=== PATIENT | female | born 1960 | race Caucasian/White ===

== ENCOUNTER → 2017-07-13 11:32 | Outpatient (CLI) | payer BC ==
[~2017-07-13] VITALS: Ht 172.7 cm; Wt 62.7 kg
--- NOTE | ~2017-07-13 | HEMODYNAMI ---
PATIENT:MARCE HUFFMAN MEDICAL RECORD: [id number] : 64 LOCATION:[facility] ADMISSION DATE: 07/13/17 Generatedon:07/13/201714:52 Patient name: MARCE HUFFMAN Patient #: [id number] SSN: : 1960 Date of study: 07/13/2017 Page: Of Hemodynamic Procedure Report Patient Data Patient Demographics Procedure consent was obtained First Name: MARCE Gender: Female Last Name: ARMIDA : 1960 [facility] Initial: HARLEEN Age: 57 year(s) Patient #: [id number] Race: Unknown Additional ID: [id number] Contact details Address: [address] [place] [address] State: [place] City: [facility] [place] Zip code: [address] Admission Admission Data Admission Date: 07/13/2017 Admission Time: 11:32 Procedure Procedure Types Cath Procedure Diagnostic Procedure LHC LHC w/Coronaries Miscellaneous Procedures Moderate Sedation up to 15 minutes Procedure Description Procedure Date Procedure Date: 07/13/2017 Procedure Start Time: 14:37 Procedure End Time: 14:52 Procedure Staff Name Function Arias Kennedy MD Performing Physician Neftali Rodrigues RT Monitor Felisa Garcia RT Scrub Humberto Lozano RN Nurse Procedure Data Cath Procedure Fluoroscopy Diagnostic fluoroscopy Total fluoroscopy Time: 1.1 time: 1.1 min min Diagnostic fluoroscopy Total fluoroscopy dose: 134 dose: 134 mGy mGy Contrast Material Contrast Material Type Amount (ml) Isovue 300 46 Entry Location Entry Primary Successful Side Size Upsize Upsize Entry Closure Robison ccessful Closure Location (Fr) 1 (Fr) 2 (Fr) Remarks Device Remarks Radial Right 6 Fr Mechanical artery Short Compression Estimated blood loss: 10 ml Diagnostic catheters Device Type Used For End Catheter Placement DIAGNOSTIC [place] 110cm 5 Procedure Fr catheter ([id number]) Procedure Complications No complications Procedure Medications Medication Administration Route Dosage 0.9% NaCl I.V. 100 ml/hr Oxygen NC 2 l/min Heparin Flush Bag added to field 2 bags (1000units/500ml NS) Lidocaine 2% added to field 20 Radial Cocktail added to field 1 syringe (Verapomil 2mg/Nitro 400mcg/Heparin 1500units) Versed I.V. 2 mg Fentanyl I.V. 100 mcg Radial Cocktail I.A. 1 syringe (Verapomil 2mg/Nitro 400mcg/Heparin 1500units) Hemodynamics Rest Heart Rate: 71 (bpm) Pressure Samples Time Site Value (mmHg) Purpose Heart Use Rate(bpm) 14:39 LV 134/-14,10 Snapshot 75 14:40 AO 105/63(81) Snapshot 88 Gradients Valve Time Site Site Mean SEP/DFP Peak To Heart Use 1 2 (mmHg) (sec/min) Peak Rate (mmHg) (bpm) Aortic 14:40 LV AO 73 Snapshots Pre Cath Intra NCS Post Cath Vital Signs Time Heart Resp SPO2 etCO2 NIBP Rhythm Pain Sedation Rate (ipm) (%) (mmHg) (mmHg) Status Level (bpm) 14:29:38 72 14 100 39.3 126/55(86) NSR 0 (11) 10(A) , No pain 14:34:14 70 16 99 40.8 111/57(80) NSR 0 (11) 10(A) , No pain 14:38:47 89 15 100 41.5 117/62(86) NSR 0 (11) 10(A) , No pain 14:43:24 88 16 97 43.1 108/54(77) NSR 0 (11) 10(A) , No pain 14:47:56 98 43.8 122/55(87) NSR 0 (11) 10(A) , No pain Medications Time Medication Route Dose Verified Delivered Reason Notes Effectiveness by by 14:27:08 0.9% NaCl I.V. 100 Humberto Humberto Per ml/hr Blake Lozano physician RN RN 14:27:36 Oxygen NC 2 l/min Humberto Humberto Per Blake Lozano physician RN RN 14:28:02 Heparin Flush added 2 bags Humberto Humberto used for Bag to Lorigan Lorigan procedure (1000units/500ml field RN RN NS) 14:28:45 Lidocaine 2% added 20ml Humberto Humberto for local to vial Lorigan Lorigan anesthetic field RN RN 14:29:02 Radial Cocktail added 1 Humberto Humberto for (Verapomil to syringe Lorigan Lorigan vasodilation 2mg/Nitro field RN RN 400mcg/Heparin 1500units) 14:39:08 Versed I.V. 2 mg Humbertooneyda Paul for sedation Blake Lozano RN RN 14:39:16 Fentanyl I.V. 100 mcg Humberto Paul for sedation Blake Lozano RN RN 14:39:39 Radial Cocktail I.A. 1 Humberto Bianchi for (Verapomil syringe Blake Kennedy vasodilation 2mg/Nitro ALEXANDRA REDDY 400mcg/Heparin 1500units) Procedure Log Time Note 14:00:54 Neftali Rodrigues RT(R) sent for patient. Start room use. 14:07:55 Time tracking: Regular hours 14:07:59 Plan of Care:Hemodynamics will remain stable., Cardiac rhythm will remain stable., Comfort level will be maintained., Respiratory function will remain adequate., Patient/ family verbilizes understanding of procedure., Procedure tolerated without complication., Recovers from procedure without complications.. 14:10:43 Patient received from Pre/Post Procedure Room to [facility] 1 Alert and oriented. Tansferred to table in Supine position. 14:10:44 Warm blankets applied, and rufus hugger turned on for patient comfort. 14:10:44 Correct patient and procedure confirmed by team. 14:10:45 Signed procedure consent form obtained from patient. 14:10:46 ECG and BP/O2 sat monitors applied to patient. 14:10:47 Full Disclosure recording started 14:27:08 0.9% NaCl 100 ml/hr I.V. was administered by Humberto Lozano RN; Per physician; 14:27:36 Oxygen 2 l/min NC was administered by Humberto Lozano RN; Per physician; 14:28:02 Heparin Flush Bag (1000units/500ml NS) 2 bags added to field was administered by Humberto Lozano RN; used for procedure; 14:28:45 Lidocaine 2% 20ml vial added to field was administered by Humberto Lozano RN; for local anesthetic; 14:28:48 Vital chart was started 14:29:02 Radial Cocktail (Verapomil 2mg/Nitro 400mcg/Heparin 1500units) 1 syringe added to field was administered by Humberto Lozano RN; for vasodilation; 14:29:02 Baseline sample Acquired. 14:29:06 Rhythm: sinus rhythm 14:29:29 H&P Date Dictated: 07/05/2017 Within 30 days and on chart.. 14:29:30 Pre-procedure instructions explained to patient. 14:29:31 Pre-op teaching completed and patient verbalized understanding. 14:29:35 Family in patients room. 14:29:37 Patient NPO since Midnight. 14:29:39 Is the patient allergic to Iodine/contrast media? No. 14:29:44 Is patient on blood thinner?No 14:29:46 Patient diabetic? No. 14:29:49 Patient not . Patient is over age 57. 14:32:19 Previous problem with sedation/anesthesia? No ? 14:32:20 Snore? Yes 14:32:22 Sleep apnea? No 14:32:22 Deviated septum? No 14:32:24 Opens mouth fully? Yes 14:32:25 Sticks out tongue? Yes 14:32:28 Airway obstruction? No ? 14:32:30 Dentures? No ? 14:32:33 Pre procedure: right dorsailis pedis pulse 1+ Palpable, but thready & weak; easily obliterated 14:32:36 Modified Eleno's test Ulnar < 7 seconds 14:32:43 Patient pain scale 0/10 ?. 14:32:49 IV patent on arrival in left forearm with 0.9% NaCl at [facility]. 14:32:51 Lab results completed and on chart. 14:32:54 Right Radial & Right Groin area was prepped with chlora-prep and draped in sterile fashion 14:32:55 Alarms reviewed by R. N. 14:32:56 Sharps counted by scrub and verified by R.N. 14:33:14 Use device set Radial Dx 14:33:17 Tegaderm 4 x 4 (1626W) opened to sterile field. 14:33:18 ACIST Hand Control (50030) opened to sterile field. 14:33:18 ACIST Manifold (62534) opened to sterile field. 14:33:20 ACIST Syringe (31775) opened to sterile field. 14:33:20 Medline Cath Pack ([id number]) opened to sterile field. 14:33:21 Bag Decanter (2002S) opened to sterile field. 14:33:21 SHEATH 6FR Slender ([id number]) opened to sterile field. 14:33:21 DIAGNOSTIC WIRE .035 260cm J wire (060641) opened to sterile field. 14:33:22 MBrace Wrist Support ([id number]) opened to sterile field. 14:36:15 --------ALL STOP TIME OUT------ 14:36:16 Final Timeout: patient, procedure, and site verified with staff and physician. All members of the team are in agreement. 14:36:18 Right Radial & Right Groin site verified by team. 14:36:20 Physical assessment completed. ASA score P 2 - A patient with mild systemic disease as per Arias Kennedy MD. 14:36:23 Sedation plan: IV Moderate Sedation Medication:Versed, Fentanyl 14:36:46 Zero performed for pressure channel P1 14:36:49 Zero performed for pressure channel P1 14:37:03 Procedure started. 14:37:07 Local anesthetic to right radial artery with Lidocaine 2% by Arias Kennedy MD.INITIAL ACCESS ONLY 14:38:08 A 6 Fr Short sheath was inserted into the Right Radial artery 14:38:21 A DIAGNOSTIC [place] 110cm 5 Fr catheter ([id number]) was advanced over the wire and used for Procedure. 14:39:08 Versed 2 mg I.V. was administered by Humberto Lozano RN; for sedation; 14:39:16 Fentanyl 100 mcg I.V. was administered by Humberto Lozano RN; for sedation; 14:39:39 Radial Cocktail (Verapomil 2mg/Nitro 400mcg/Heparin 1500units) 1 syringe I.A. was administered by Arias Kennedy MD; for vasodilation; 14:39:45 LV angiography performed. 14:39:46 LV gram done using PHILLIPS 14:39:54 EF : 55 % 14:39:59 LV hemodynamics recorded. 14:40:04 Injector settings: Ml/sec: 7, Volume: 15, 14:41:04 LCA angiography performed. 14:41:52 RCA angiography performed. 14:41:56 Catheter removed. 14:42:11 TR BAND Standard ([id number]) opened to sterile field. 14:42:22 Sheath removed intact; hemostasis achieved with Mechanical Compression to the Right Radial artery. 14:42:24 Procedure ended.(Physican Out) 14:51:03 Fluoroscopy time 01.10 minutes. 14:51:08 Fluoroscopy dose: 134 mGy 14:51:08 Flurop Dose total: 134 14:51:20 Contrast amount:Isovue 300 46ml. 14:51:22 Sharps counted by scrub and verified by R.N. 14:51:24 Insertion/operative site no bleeding no hematoma. 14:51:27 TR band inflated with 12cc of air. 14:51:29 Post Procedure Pulses reassessed and unchanged 14:51:34 Post-procedure physical assessment completed. ASA score P 2 - A patient with mild systemic disease as per Arias Kennedy MD. 14:51:36 Post procedure rhythm: unchanged. 14:51:38 Estimated blood loss: 10 ml 14:51:39 Post procedure instruction explained to patient.Patient verbalizes understanding. 14:51:40 Patient needs reinforcement of post procedure teaching. 14:51:41 Vital chart was stopped 14:51:44 Procedure Complication : No complications 14:51:54 Procedure and supply charges have been captured, reviewed, submitted and are correct. 14:52:09 See physician's report for complete and final results. 14:52:12 Report given to Pre/Post Procedure Room. 14:52:15 Patient transfered to Pre/Post Procedure Room with Stretcher. 14:52:17 Procedure ended. 14:52:17 Full Disclosure recording stopped 14:52:25 End room use (Document Last) Device Usage Item Name Manufacture Quantity Catalog Hospital Part Current Minima l Lot# / Number Charge Number Stock Stock Serial# Code Tegaderm 4 x 3M 1 1626W [id number] [id number] [id number] 5 4 (1626W) ACIST Hand Acist 1 18119 156785 716131 866079 5 Control Medical (11677) Systems Inc ACIST Acist 1 30208 665521 008611 118612 5 Manifold Medical (90583) Systems Inc ACIST Acist 1 82849 480658 798237 040841 20 Syringe Medical (14892) Systems Inc Medline Cath Cardinal 1 [id number] 068885 05862 360727 5 Pack Health ([id number]) Bag Decanter Microtek 1 2001S 936345 91921 750919 5 () Medical Inc. SHEATH 6FR Terumo 1 [id number] 737240 873429 429174 40 Slender ([id number]) DIAGNOSTIC St Pako 1 470523 146499 156575 360379 30 WIRE .035 260cm J wire (277060) MBrace Wrist Advanced 1 140-0250-00 569742 74119 234366 5 Support Vascular ([id number]) Dynamics DIAGNOSTIC Terumo 1 83-0920 082702 611933 795029 5 [place] 110cm 5 Fr catheter (136523) TR BAND Terumo 1 [id number] 960146 682300 794585 40 Standard ([id number]) Signature Audit Wheeler Stage Time Signature Unsigned Intra-Procedure 07/13/2017 Neftali Rodrigues 2:52:42 PM RT(R) Signatures Monitor : Neftali Rodrigues RT Signature : Date : Time : [address] [address]
[~2017-07-13 11:32] MED LIST: CALCI-CHEW1 TAB.CHEW PO; MULTI-DAY VITAM1 TAB PO; PROBIOTIC1 EAC1 PO; PROTONIX40 MG PO; SUMATRIPTAN SUC25 MG PO; TUMS500 MG PO; ZANAFLEX4 MG PO; ZOLOFT50 MG PO
[2017-07-13 12:18] VITALS: BP 129/62; Ht 172.7 cm; Wt 62.7 kg
[2017-07-13 12:26] LABS: BASOPHILS 0.4 % (0-2); EOSINOPHILS 2.1 % (0-7); HEMATOCRIT 40.4 % (36.0-48.0); HEMOGLOBIN 13.4 g/dL (12-16); IMMATURE GRANULOCYTES 0.3 % (0-5); LYMPHOCYTES 29.4 % (15-50); MCH 29.5 pg (26.0-34.0); MCHC 33.2 g/dL (31.0-37.0); MEAN PLATELET VOLUME 10.2 fL (7.4-10.4); NEUTROPHILS 59.8 % (40-80); PLATELET COUNT 258 10x3/uL (130-400); RBC 4.54 10x6/uL (4.00-5.40); RDW 13.3 % (11.5-14.5)
[2017-07-13 12:42] LABS: CALC OSMOLALITY 275 mosm/kg (275-300); CARBON DIOXIDE 27.5 mmol/L (21.0-32.0); CHLORIDE - SERUM 103 mmol/L (98-107); CREATININE - SERUM 0.7 mg/dL (0.6-1.3); GLUCOSE 94 mg/dL (74-106); POTASSIUM - SERUM 4.2 mmol/L (3.5-5.1); SODIUM 136 mmol/L (136-145); UREA NITROGEN 24 mg/dL (7-18); eGFR NON AFRICAN AMERICAN > 90 mL/min (90-120)
--- NOTE | 2017-07-13 15:04 | NUR ---
RECIEVED TO ROOM VIA STRETCHER FROM LEAD SOFTWARE ENGINEER WITH REPORTS OF A CLEAN CATH WITH TR BAND TO R/WRIST CDI NO BLEEDING NO HEMATOMA NOTED.VSS
--- NOTE | 2017-07-13 15:15 | NUR ---
TR BAND CDI NO BLEEDING NO HEMATOMA NOTED. PATIENT DENIED PAIN WITH VSS. SODA TO BEDSIDE WITH NAUSEA DENIED
--- NOTE | 2017-07-13 15:41 | NUR ---
TR BAND REMAINS TO R/WRIST CDI NO BLEEDING NO HEMATOMA NOTED. FAMILY AT BEDSIDE
--- NOTE | 2017-07-13 15:56 | NUR ---
PATIENT SLEEPING QUIETLY WITH NO DISTRESS NOTED TR BAND TO R/WRIST CDI VSS
--- NOTE | 2017-07-13 16:23 | NUR ---
2 CC AIR REMOVED FROM TR BAND WITH NO BLEEDING NO HEMATOMA NOTED
--- NOTE | 2017-07-13 16:39 | NUR ---
4 CC AIR REMOVED FROM TR BAND WITH NO BLEEDING NO HEMATOMA NOTED
--- NOTE | 2017-07-13 16:51 | NUR ---
PIV REMOVED WITH DRESSING APPLIED. 2 CC AIR REMOVED FROM TR BAND WITH NO BLEEDING NO HEMATOMA NOTED. PATIENT UP TO GET DRESSED FOR DISCHARGE HOME
--- NOTE | 2017-07-13 17:11 | NUR ---
VERBAL AND WRITTEN DISCHARGE GONE OVER WITH PATIENT AND FAMILY. ALL VERBALIZED UNDERSTANDING. TR BAND REMOVED WITH DRESSING APPLIED NO BLEEDING NO HEMATOMA NOTED. PATIENT LEFT VIA WC TO PARKING FOR TRANSPORT HOME
--- NOTE | 2017-07-14 13:23 | OP ---
PATIENT NAME: MARCE HUFFMAN MEDICAL RECORD: [id number] :64 LOCATION:[facility] ADMISSION DATE: SURGEON: CARIN SR MD DATE OF OPERATION: 07/13/2017 PROCEDURE: Left heart catheterization, selective coronary angiography, right radial approach. CATHETERS: A radial catheter, radial sheath, Dwale catheter. The procedure was well tolerated and the patient returned to the gusman, sheath was removed. TR band was placed. FINDINGS: Left ventriculography in the 30-degree PHILLIPS view: Normal wall motion, normal systolic function. CORONARY ANATOMY. LEFT MAIN: Left main is free of disease. LAD: Free of disease in the diagonal system. CIRCUMFLEX: Free of disease in the marginal system. RIGHT CORONARY ARTERY: Dominant artery, gives rise to PDA, free of disease. IMPRESSION: Normal systolic function. Normal coronary anatomy. TRANSINT:[id number] Voice Confirmation ID: [id number] DOCUMENT ID: [id number] CARIN SR MD at 1323 CC: [id number] DICTATION DATE: 07/13/17 1445 DIRECTOR OF CAPITAL GIVING: 07/13/17 1537 DEP CLI 07/13/[address] [address]
== END | disposition home or self-care (01) ==
LOC: D.CATH 11:32
PROVIDERS: Internal Medicine Interventional Cardiology
DX: I20.9 Angina pectoris, unspecified (principal); R07.9 Chest pain, unspecified; R06.00 Dyspnea, unspecified; I34.1 Nonrheumatic mitral (valve) prolapse; R00.2 Palpitations; Z01.812 Encounter for preprocedural laboratory examination

== ENCOUNTER 2019-08-06 16:22 | Emergency (ER) | payer BC ==
[~2019-08-06] VITALS: Ht 172.7 cm; Wt 70.5 kg
[2019-08-06 16:50] VITALS: Ht 172.7 cm; Wt 70.5 kg
[2019-08-06 17:30] LABS: BASOPHILS 0.2 % (0-2); EOSINOPHILS 0.4 % (0-7); HEMATOCRIT 43.7 % (36.0-48.0); HEMOGLOBIN 14.7 g/dL (12-16); IMMATURE GRANULOCYTES 0.3 % (0-5); LYMPHOCYTES 10.4 % (15-50); MCHC 33.6 g/dL (31.0-37.0); MCV 92.2 fL (80.0-100.0); MEAN PLATELET VOLUME 9.6 fL (7.4-10.4); MONOCYTES 7.8 % (2-11); NEUTROPHILS 80.9 % (40-80); PLATELET COUNT 301 10x3/uL (130-400); RBC 4.74 10x6/uL (4.00-5.40); RDW 12.9 % (11.5-14.5); WBC 15.1 10x3/uL (4.8-10.8)
[2019-08-06 17:35] LABS: APPEARANCE CLEAR (CLEAR); BILIRUBIN NEGATIVE (NEGATIVE); COLOR YELLOW (YELLOW); GLUCOSE NEGATIVE (NEGATIVE); KETONE NEGATIVE (NEGATIVE); NITRITE NEGATIVE (NEGATIVE); PROTEIN 1+ mg/dL (NEGATIVE); UROBILINOGEN NORMAL (NORMAL)
[2019-08-06 17:37] LABS: BACTERIA FEW /hpf (NEGATIVE); EPITHELIAL CELLS 0-5 /hpf (0-5); RED CELLS - URINE 0-5 /hpf (0-5); WHITE CELLS - URINE 0-5 /hpf (NEGATIVE)
[2019-08-06 17:40] LABS: ANION GAP 11.6 mmol/L (8-16); CALCIUM 8.8 mg/dL (8.5-10.1); CARBON DIOXIDE 29.7 mmol/L (21.0-32.0); POTASSIUM - SERUM 4.3 mmol/L (3.5-5.1)
[2019-08-06 17:46] LABS: BILIRUBIN - TOTAL 0.33 mg/dL (0.2-1.3); PROTEIN - SERUM 8.1 g/dL (6.4-8.2)
[2019-08-06] MEDS ORDERED: HYDROCODON-ACE1 EAC7 PO (20:15)
[2019-08-06] MEDS ORDERED: FLOMAX0.4 MG PO (20:15)
[2019-08-06] MEDS ORDERED: ZOFRAN4 MG PO (20:15)
[2019-08-06 20:37] VITALS: BP 132/70
== END 2019-08-06 20:45 | disposition home or self-care (01) ==
LOC: D.ER 16:22
PROVIDERS: Emergency Medicine
DX: N20.0 Calculus of kidney (principal); R10.9 Unspecified abdominal pain; E16.2 Hypoglycemia, unspecified